=== PATIENT | male | born 1965 ===

== ENCOUNTER 2019-01-11 11:00 | Outpatient (CLI) | payer OTHER | END 2019-01-11 11:01 | disposition home or self-care (01) | LOC: SLR 11:00 | DX: G47.33 Obstructive sleep apnea (adult) (pediatric) (principal) | CPT/HCPCS: 95810 ==

== ENCOUNTER 2019-03-05 11:00 | Outpatient (CLI) | payer OTHER | END 2019-03-05 11:01 | disposition home or self-care (01) | LOC: SLR 11:00 | PROVIDERS: ATTEND Internal Medicine | DX: G47.33 Obstructive sleep apnea (adult) (pediatric) (principal) | CPT/HCPCS: 95811 ==